=== PATIENT | female | born 1940 | race Caucasian/White ===

== ENCOUNTER 2019-08-24 12:20 | Observation (INO) ==
[2019-08-24 16:14] LABS: BASO# 0.02 X1000 (0.0-0.2); BASO% 0.2 % (0.0-0.8); EOS# 0.01 X1000 (0.0-0.7); EOS% 0.1 % (0.0-10.0); HEMATOCRIT 34.7 % (37.0-47.0); HEMOGLOBIN 11.1 g/dL (12.0-16.0); IMM GRAN# 0.03 X1000 (0.0-0.04); IMM GRAN% 0.3 % (0.0-0.5); LYMPH# 2.86 X1000 (1.2-3.4); LYMPH% 27.4 % (20.5-51.1); MCH 29.1 PG (27-31); MCV 90.8 FL (81-99); MONO# 0.78 X1000 (0.11-0.59); MONO% 7.5 % (1.7-9.3); NEUT# 6.72 X1000 (1.4-6.5); NEUT% 64.5 % (42.2-75.2); PLT 385 X1000 (130-400); RBC 3.82 XMIL (4.2-5.4); RDW 12.8 % (11.5-14.5); WBC 10.42 X1000 (4.8-10.8)
[2019-08-24 16:35] LABS: ALB/GLOB RATIO 1.1; ALBUMIN 3.5 g/dL (3.5-5.0); CALCIUM 8.9 mg/dL (8.8-10.2); CREATININE 2.8 mg/dL (0.5-0.9); TOTAL BILIRUBIN 0.25 mg/dL (0.20-1.00); TOTAL PROTEIN 6.6 g/dL (6.3-8.3)
[2019-08-24 18:23] LABS: URINE SOURCE CLEAN CATCH
[2019-08-24 18:26] LABS: BILIRUBIN URINE NEGATIVE (NEGATIVE); BLOOD URINE NEGATIVE (NEGATIVE); COLOR STRAW; GLUCOSE URINE NEGATIVE (NEGATIVE); KETONE URINE NEGATIVE (NEGATIVE); LEUKOCYTES URINE NEGATIVE (NEGATIVE); NITRITE URINE NEGATIVE (NEGATIVE); PH URINE 6.5; PROTEIN URINE 30 mg/dL (NEGATIVE); SP GRAVITY URINE 1.008; TURBIDITY URINE CLEAR (CLEAR); UROBILINOGEN URINE NORMAL (NORMAL)
[2019-08-24 18:40] LABS: UR EPITHELIAL CELLS <10 /HPF (<10); URINE BACTERIA NEGATIVE /HPF; URINE RBC <10 /HPF (<10); URINE WBC <10 /HPF (<10)
[2019-08-24] MEDS: POTASSIUM CHLORIDE 20 MEQ/SWI 20 MEQ/100 ML IVPB IV SCH ×2 (18:43→21:08)
--- NOTE | 2019-08-24 19:23 | HISTORY AND PHYSICAL ---
CHIEF COMPLAINT: Lower abdominal pain, bladder retention. HISTORY OF PRESENT ILLNESS: She is an 78-year-old white female who was seen in [place] ER with lower abdominal pain and recurrent UTI. The patient was sent home with a Rubio catheter. She came to my office today. We removed the Rubio catheter and after a few hours she was not emptying the bladder. Bladder volume was 150. She was in a lot of pain, was admitted to the hospital with bladder retention with recurrent abdominal pain, elevated creatinine. The patient was seen by the urogynecologist in the past with Dr. Santacruz. Basically admitted to the hospital for bladder scanning, and Urology consult was obtained. PAST MEDICAL HISTORY: 1. Previous atypical chest pain. Stress test was negative in 2006. 2. Cystocele. 3. Type 2 diabetes. 4. History of herpes zoster. 5. Left T8-T9. 6. Hypertension. 7. Diverticulosis. 8. Right horizontal meniscal tear. 9. Hyperlipidemia. 10. Vitamin B12 deficiency. 11. Vitamin D deficiency. PAST SURGICAL HISTORY: Appendectomy, section x3, right cataract surgery, status post cystocele repair in June 2018, by Dr. Santacruz. MEDICATIONS: Pravachol 40 mg daily, gabapentin 300 p.o. b.i.d., aspirin 81 mg daily, glipizide 5 mg daily, vitamin D 50,000 once a week, Hyzaar 100/25 daily, Ultracet 1 tablet t.i.d. ALLERGIES: Not known. History of edema with Norvasc in the past. SOCIAL HISTORY: , single since 2004. Lives in [place]. No smoking. No alcohol. FAMILY HISTORY: Father at the age of 70. Mother at 69 from diabetic complications. Sister had colon cancer, lung cancer. HEALTH MAINTENANCE: Influenza vaccine in 2018, pneumococcal January 2014, last mammography April 2018, DEXA scan November 2014, colonoscopy Dr. Guo, arterial ultrasound 03/06/2019, ESTRELLITA 0.92 on the right and 0.8 on the left side. REVIEW OF SYSTEMS: HEENT: No headache. No vision problem. No earache. No sore throat. Neck: No goiter. No lymphadenopathy. No bruit. Cardiopulmonary: No chest pain, shortness of breath, PND, orthopnea. No lumps in the breast. Gastrointestinal: Lower abdominal pain, discomfort, intermittent diarrhea, unable to pee. Musculoskeletal: No swelling of legs, chronic back pain. Neurologic: No focal symptoms or weakness. PHYSICAL EXAMINATION: VITAL SIGNS: Temperature is 99.2 degrees, pulse is 80, blood pressure 114/44, 5 feet 1 inch, 164 pounds. HEENT EXAM: Atraumatic, normocephalic. Pupils equal, react to light. TMs are normal. NECK: Supple. No lymphadenopathy. No goiter. CHEST: Bilateral air entry. HEART: Sounds are regular. No murmurs. BREAST EXAM: Deferred. ABDOMEN: Belly is soft and diffusely tender in the lower abdomen. No signs of peritonitis. EXTREMITIES: No peripheral edema or cyanosis. NEUROLOGICAL: No obvious neurological deficits. INVESTIGATIONS: White cell count 10.4, hematocrit 35, platelets 385,000. Sodium 138, potassium 3.0, chloride 98, BUN 22, creatinine 2.8, glucose 108. Urinalysis is pending. ASSESSMENT AND PLAN: An 78-year-old white female admitted to the hospital with recurrent abdominal pain, bladder retention, neurogenic bladder status post cystocele repair by Dr. Santacruz. 1. Possible urinary tract infection. We will add intravenous antibiotics. We will use Macrodantin. 2. Chronic kidney disease, stable. 3. Bladder scan with Urology consult. 4. Hypokalemia. Replace the potassium. 5. Reconcile home medicines, deep venous thrombosis prophylaxis with Lovenox, and we will discuss with Dr. Caballero. cc: Abebe Rosas MD
[2019-08-24] MEDS ORDERED: NS 500 ML ONE (19:30)
[2019-08-24] MEDS: NEURONTIN PO SCH (21:00)
[2019-08-24] MEDS: ULTRACET 37.5MG/325MG PO SCH (21:00)
[2019-08-24] MEDS: LOVENOX SUBQ SCH (21:01)
[2019-08-24] MEDS: MACRODANTIN PO SCH (21:01)
[2019-08-24] MEDS: HUMULIN R SUBQ SCH (21:02)
[2019-08-25] MEDS: POTASSIUM CHLORIDE 20 MEQ/SWI 20 MEQ/100 ML IVPB IV SCH (01:07)
[2019-08-25] MEDS: HUMULIN R SUBQ SCH ×4 (06:14→20:44)
[2019-08-25] MEDS: ASPIRIN EC PO SCH (08:39)
[2019-08-25] MEDS: GLUCOTROL PO SCH (08:39)
[2019-08-25] MEDS: MACRODANTIN PO SCH ×2 (08:39→20:45)
[2019-08-25] MEDS: PRAVACHOL PO SCH (08:39)
[2019-08-25] MEDS: ULTRACET 37.5MG/325MG PO SCH ×3 (08:39→20:45)
[2019-08-25] MEDS: NEURONTIN PO SCH ×2 (08:39→20:45)
[2019-08-25] MEDS: HYZAAR 50/12.5 MG PO SCH (08:46)
[2019-08-25] MEDS ORDERED: VITAMIN D PO SCH (09:00)
--- NOTE | 2019-08-25 14:05 | CONSULTATION ---
DATE OF CONSULTATION: 08/25/2019 CHIEF COMPLAINT: Urinary retention. HISTORY OF PRESENT ILLNESS: Mrs. Powell is an 78-year-old with history of diabetes, hypertension, hyperlipidemia, vitamin B 12 deficiency, vitamin D deficiency, diverticulosis, who presents in consultation regarding urinary retention. The patient presented to the emergency room in [place] on Tuesday after approximately 24 hour period where she had difficulty with urination and feeling that she was not urinating completely. She presented and had a catheter inserted due to pain and distention. The catheter was inserted at that time and she had some relief. She presented to her primary care physician's office yesterday and had a catheter removed from the patient's bladder. She had an elevated PVR afterwards at 150cc, and subsequently she was admitted to the hospital for evaluation. The patient states that since she has been in the hospital, she has been voiding without issue. She has had 2 bladder scans, one showing 12 mL and the other one showing 153 mL. She denies any dysuria, hematuria, urgency, or frequency. The patient has a history of prior cystocele repair with sling by Dr. Santacruz in June 2018. She states since then she feels that she has been doing relatively well. She has previously used a pessary due to pelvic organ prolapse. She states she has had some urinary tract infections recently and was treated in [place] twice recently for possible infection. The patient has chronic kidney disease with a creatinine elevated at 2.8 today. Most recent creatinine in the computer was 1.7 from 2018. She states that she had a creatinine above 2 at the emergency room in [place]. She denies a history of kidney stones, hematuria, dysuria, or significant nocturia. Urology was consulted for further recommendations regarding urinary retention. PAST MEDICAL HISTORY: 1. Type 2 diabetes. 2. Hypertension. 3. Hyperlipidemia. 4. Diverticulosis. 5. Vitamin B 12 deficiency. 6. Vitamin D deficiency. 7. Chronic Kidney Disease PAST SURGICAL HISTORY: 1. Appendectomy. 2. Right cataract surgery. 3. Cystocele repair and bladder sling by Dr. Santacruz in June 2018. HOME MEDICATION: 1. Pravachol 40 mg daily. 2. Gabapentin 300 mg b.i.d. 3. Aspirin 81 mg daily. 4. Glipizide 5 mg daily. 5. Vitamin D 50,000 international units weekly. 6. Hyzaar 100/25 mg daily. 7. Ultracet 1 tablet t.i.d. ALLERGIES: No known drug allergies. FAMILY HISTORY: Denies family history of malignancies. SOCIAL HISTORY: since 2004. Lives in [place]. Denies tobacco or alcohol use. REVIEW OF SYSTEMS: A 12 point review of systems performed with all pertinent positives and negatives in HPI. PHYSICAL EXAMINATION: Vital Signs: Temperature 98.4 degrees, heart rate 71, blood pressure 138/51, oxygen saturation 99% on room air. General: No acute distress. Resting comfortably in bed. Alert and oriented x3. HEENT: Normocephalic, atraumatic. Pupils equal and reactive to light. Neck: Trachea midline with no obvious masses. Respiratory: Good respiratory effort without audible wheezing or rales. Cardiovascular: Regular rate and rhythm. No evidence of lower extremity edema. Abdomen: Soft, nontender, nondistended. : No suprapubic tenderness. No CVA tenderness. Pelvic exam: Shows normal external genitalia. Urethra and urethral meatus appeared to be normal. No palpable urethral masses. On palpation of the mid urethra, there was evidence of a mesh exposure in the left portion of the vagina which seems to be lateral. No palpable mesh seen or felt on the right side. No evidence of cystocele or rectocele on exam. No stress urinary incontinence or provoking measures. No palpable rectal masses. No palpable adnexal masses or tenderness. Musculoskeletal: Moving all extremities. Prior surgical incision on the right knee. Neurologic: Gross motor and sensory intact. Skin: No skin lesions or rashes. LABS: White blood cell count 10.4, hemoglobin 11.1, hematocrit 34.7, platelets 385. Sodium 138, potassium 3.0, chloride 98, bicarbonate 24. BUN 22, creatinine 2.8, glucose 108. Urine: There is 30 of protein, negative leukocytes, nitrites, blood, bacteria and epithelial cells. ASSESSMENT AND PLAN: Mrs. Powell is an 78-year-old with history of type 2 diabetes, hypertension, hyperlipidemia, diverticulosis, vitamin B 12 deficiency, vitamin D deficiency, and chronic kidney disease, who presents in consultation regarding difficulty with urination. The patient feels that she is having difficulty emptying her bladder to completion. She had a catheter inserted at [place] ED on Tuesday. Had this removed at Dr. Rosas's office yesterday and had difficulty with urination after the catheter was removed. Has voided without issue while in the hospital. Creatinine was elevated on presentation to the hospital. She did have an episode of diarrhea recently, which could have led to dehydration and elevated renal function. Concern that her kidney function is higher than has been previous. She states that her renal function at [place] was in the low 2s and improved to less than 2 at time of discharge. Creatinine yesterday was 2.8. We will plan to obtain a renal ultrasound to assess for obstruction. Patient had a cystocele and sling placed by Dr. Santacruz in June 2018. On exam today, I can not feel any exposed mesh or cystocele. She does have a small amount of exposed mesh in the left portion of her vagina. I recommended in the future to have an office cystoscopy to better assess for any exposure of mesh in the urethra or the bladder itself, which could be leading to her symptoms. Urinalysis shows no evidence of blood, leukocytes, or bacteria. I do not think the patient is having an active infection leading to her symptoms. She has had 2 bladder scans, 1 showing 12 cc, another saying 153cc. I think patient likely is emptying adequately at this time. I would hold off on insertion of catheter. Encouraged her to be ambulatory. We will continue to follow from a urologic standpoint. Please call with questions or concerns. cc: MD Abebe Mayfield MD MTDD
--- NOTE | 2019-08-25 14:40 | Diag Imaging Result Doc PS360 ---
US RENAL 2 (RETROPER) COMPLETE - 08/25/2019 INDICATION: CELE with history of recurrent urinary tract infect TECHNIQUE: COMPARISON: None FINDINGS: The kidneys and urinary bladder are normal. There is no mass, cyst, or hydronephrosis. The right kidney measures 11.3 x 4.4 x 5.7 cm. The left kidney measures 11 x 4.5 x 5 cm. IMPRESSION: Negative exam. Electronically signed by David Burroughs 08/25/2019 2:38 PM
--- NOTE | 2019-08-25 14:47 | PROGRESS NOTE ---
DATE: 08/25/2019 SUBJECTIVE: The patient is a little better this morning. I appreciated Dr. Caballero's consult, and initial was 12 and not able to pee now. Waiting for ultrasound. I am going to hold the discharge and monitoring with her outlet obstruction. PHYSICAL EXAMINATION: Vital signs: Temperature is 98 degrees. Vitals are stable. HEENT: Within normal limits. Chest: Clear. Heart: Sounds are regular. Abdomen: Belly is soft, nontender. Neurologic: No obvious deficits. ASSESSMENT: 1. Possible urinary tract infection, on Macrobid. 2. Chronic kidney disease worsening with bladder outlet obstruction status post cystocele repair. 3. Deep vein thrombosis prophylaxis with Lovenox. 4. Diabetes, on glipizide. PLAN: Check the renal ultrasound and will continue to monitor postvoid residual urine for the next [address] Caballero's consult. cc: Abebe Rosas MD
[2019-08-25] MEDS: LOVENOX SUBQ SCH (20:45)
[2019-08-26] MEDS: HUMULIN R SUBQ SCH (06:07)
--- NOTE | 2019-08-26 08:40 | PROGRESS NOTE ---
DATE: 08/26/2019 SUBJECTIVE: No acute events overnight. The patient states she has been voiding without issue. She denies any straining to urinate or sensation of incomplete emptying. The patient had a renal ultrasound yesterday which showed no evidence of hydronephrosis, bladder mass, renal mass, or renal cyst. The patient has had several bladder scans performed which are ranging from 12 to 150 mL. She denies any dysuria or hematuria and overall feels like she is back to her normal state. PHYSICAL EXAMINATION: Vital Signs: Temperature 98.1 degrees, heart rate 65, blood pressure 138/50, oxygenation saturation 100% on room air. General: No acute distress. Resting comfortably in bed. Alert and oriented x3. Respiratory: Good respiratory effort without audible wheezing or rales. Abdomen: Soft, nontender, nondistended. No palpable masses or hepatosplenomegaly. : No suprapubic tenderness. No CVA tenderness. IMAGING: Renal ultrasound images reviewed which showed no evidence of any renal mass, hydronephrosis, or renal cyst. ASSESSMENT AND PLAN: Ms. Powell is an 78-year-old with a history of type 2 diabetes, hypertension, hyperlipidemia, diverticulosis, vitamin B12 deficiency, vitamin D deficiency, and chronic kidney disease, who presents in consultation regarding elevated creatinine and difficulty with urination. The patient states that her renal function has varied in the low 2s for several months now. The patient had a renal ultrasound yesterday which showed no evidence of hydronephrosis, renal mass, or renal cyst. The patient feels that she is emptying her bladder adequately at this time. She denies any straining to urinate. Postvoid residuals have remained intermittently elevated. I think patient seems to be back to her normal state. I talked with her and I recommended outpatient cystoscopy to evaluate for exposed mesh within the bladder and urethra itself leading to some of her voiding complaints, as well as evaluation for intravesical pathologies. Urinalysis on admission showed no evidence of blood or leukocytes. The patient does state she has had some recent infections. I did order some lab work for her this morning to ensure stability of her renal function. We will plan to follow up outpatient regarding cystoscopy. Please call with questions or concerns. cc: MD Abebe Mayfield MD MTDD
[2019-08-26 08:56] LABS: HEMATOCRIT 36.9 % (37.0-47.0); HEMOGLOBIN 11.4 g/dL (12.0-16.0); MCH 28.9 PG (27-31); MCHC 30.9 g/dL (33-37); MCV 93.7 FL (81-99); MPV 11.1 FL (7.4-10.4); RBC 3.94 XMIL (4.2-5.4); RDW 12.8 % (11.5-14.5); WBC 8.86 X1000 (4.8-10.8)
[2019-08-26] MEDS: PRAVACHOL PO SCH (09:00)
[2019-08-26] MEDS: GLUCOTROL PO SCH (09:00)
[2019-08-26] MEDS: ASPIRIN EC PO SCH (09:00)
[2019-08-26] MEDS: ULTRACET 37.5MG/325MG PO SCH (09:00)
[2019-08-26 09:01] LABS: CALCIUM 8.9 mg/dL (8.8-10.2); POTASSIUM 3.8 mmol/L (3.5-5.1)
[2019-08-26] MEDS: MACRODANTIN PO SCH (09:01)
[2019-08-26] MEDS: HYZAAR 50/12.5 MG PO SCH (09:01)
[2019-08-26] MEDS: NEURONTIN PO SCH (09:03)
[2019-08-26 11:40] VITALS: BP 113/42
--- NOTE | 2019-08-26 14:34 | DISCHARGE SUMMARY ---
ADMISSION DATE: 08/24/2019 DISCHARGE DATE: 08/26/2019 SUBJECTIVE: The patient still trouble of emptying the bladder. When you do the bladder scan on the midline, it is saying 12 mL, but afterwards, left side is 150 mL. She had a cystocele repair. Renal ultrasound, no hydronephrosis. Creatinine came down to 2.0. I [address] Dr. Caballero's consult. In fact, he saw the patient in the morning. Family was at bedside. The patient has trouble of voiding off and on. PHYSICAL EXAMINATION: Temp is 98.2 degrees, pulse is 74, blood pressure 113/42. HEENT within normal limits. Neck is supple. Chest is clear. Heart sounds are regular. Belly is soft, nontender. LABS: White cell count 8.8, hematocrit 36, platelets 403,000. Sodium 140, potassium 3.8, chloride 104, BUN 19, creatinine 2.0 glucose 120. PROCEDURES: Renal ultrasound negative. DISCHARGE INSTRUCTIONS: Aspirin 81 mg daily, gabapentin 300 p.o. b.i.d., glipizide 5 mg daily, pravastatin 40 daily, Ultracet 1 tablet t.i.d., vitamin D 59003 once a week, and Hyzaar 50/12.5 two tablets daily and urine cultures negative for infection. PLAN OF CARE: Cystoscopic exam. Other options discussed by Dr. Caballero on 08/30/2019. cc: MD Cuauhtemoc Aldridge MD
== END 2019-08-26 13:41 | disposition home or self-care (01) ==
LOC: DIRADM 12:20 → INTOOBSV 12:20 → 3N 13:01
PROVIDERS: ADMIT Internal Medicine; ATTEND Internal Medicine